=== PATIENT | female | born 1950 | race Native Hawaiian/Other Pacific Islander ===

== ENCOUNTER 2020-03-14 16:46 | Outpatient (CLI) | payer BC ==
[2020-03-14 17:11] LABS: PLATELET COUNT 291 K/uL (152-353)
[2020-03-14 17:42] LABS: POTASSIUM 4.2 mmol/L (3.6-5.2)
== END 2020-03-14 19:18 | disposition home or self-care (01) ==
LOC: LAB 16:46
PROVIDERS: ATTEND Nurse Practitioner Family
DX: Z00.00 Encounter for general adult medical examination without abnormal findings (principal); E03.8 Other specified hypothyroidism; I10 Essential (primary) hypertension; J45.909 Unspecified asthma, uncomplicated; R73.09 Other abnormal glucose; K21.9 Gastro-esophageal reflux disease without esophagitis; R53.83 Other fatigue; Z79.899 Other long term (current) drug therapy
CPT/HCPCS: 80053; 80061; 82306; 82607; 83036; 84439; 84443; 85027